=== PATIENT | male | born 1955 | race Caucasian/White ===

== ENCOUNTER 2024-02-13 07:30 | Outpatient (CLI) | payer MEDICARE, BC, SELFPAY | END 2024-02-13 07:31 | disposition home or self-care (01) | LOC: NFLDREF 02-14 07:10 | PROVIDERS: PCP Family Medicine; Referring Provider Family Medicine; Visit Provider Family Medicine | DX: Z13.1 Encounter for screening for diabetes mellitus (principal); Z12.5 Encounter for screening for malignant neoplasm of prostate; Z13.6 Encounter for screening for cardiovascular disorders | CPT/HCPCS: 80061; 82947; G0103 ==

== ENCOUNTER 2025-02-17 07:31 | Outpatient (CLI) | payer MEDICARE, SELFPAY | END 2025-02-17 07:32 | disposition home or self-care (01) | LOC: NFLDREF 02-18 14:58 | PROVIDERS: PCP Family Medicine; Referring Provider Family Medicine; Visit Provider Family Medicine | DX: E78.5 Hyperlipidemia, unspecified (principal); Z13.9 Encounter for screening, unspecified; Z12.5 Encounter for screening for malignant neoplasm of prostate | CPT/HCPCS: 80053; 80061; G0103 ==